=== PATIENT | male | born 1985 | race Caucasian/White ===

== ENCOUNTER 2018-11-18 12:17 | Emergency (ER) | payer OTHER ==
[~2018-11-18] VITALS: Wt 88.0 kg
[2018-11-18 12:22] VITALS: BP 114/78; PULSE 62; RESP 18
--- NOTE | 2018-11-18 12:27 | ERD ---
ER Documentation Chief Complaint Chief Complaint HERE FOR MEDICAL CLEARANCE FOR [facility] BOOKING. NO MEDICAL ISSUES. HPI Patient is here with [employer] to be cleared for booking. The patient was arrested last night and was in custodial. When he was getting discharged he mentioned to the nurse that he wants to hurt people. The [employer] are going to take him to [facility] facility and they want him here for okay to booking. Patient has no complaints at all ROS All systems reviewed and are negative except as per history of present illness. FmHx Family History: No coronary disease Physical Exam Vitals Vital Signs Date Temp Pulse Resp B/P (MAP) Pulse Ox O2 O2 Flow FiO2 Time Delivery Rate 11/18/18 98.0 62 18 114/78 97 12:22 (90) Physical Exam Const: No acute distress Head: Atraumatic Eyes: Normal Conjunctiva ENT: Normal External Ears, Nose and Mouth. Neck: Full range of motion. No meningismus. Resp: Clear to auscultation bilaterally Cardio: Regular rate and rhythm, no murmurs Abd: Soft, non tender, non distended. Normal bowel sounds Skin: No petechiae or rashes Back: No midline or flank tenderness Ext: No cyanosis, or edema Neur: Awake and alert Psych: Normal Mood and Affect Procedures/MDM Patient has been cleared for booking to be transferred to [facility] facility for homicidal thoughts Departure Diagnosis: Primary Impression: Homicidal ideation Additional Impression: Encounter for wellness examination Condition: Stable Patient Instructions: Psychosis MANUELA BERRY DO Nov 18, 2018 12:27
== END 2018-11-18 13:32 | disposition home or self-care (01) ==
LOC: E/R 12:17
DX: R45.850 Homicidal ideations (principal)
CPT/HCPCS: 99282

== ENCOUNTER 2018-11-18 13:57 | Emergency (ER) | payer OTHER ==
[~2018-11-18] VITALS: Wt 80.0 kg
--- NOTE | 2018-11-18 19:42 | ERD ---
ER Documentation Chief Complaint Chief Complaint headache and neck pain after trying to hand himself in assisted with shirt HPI This is a 32-year-old male that had been taken to [place] assisted. While he was there the patient stated he want to kill himself. He attempted to hang himself in assisted with a shirt however this was stopped by police as they noticed the patient wrapping the shirt around his neck. There is no coughing choking or gagging episode is again the attendant was stopped by police. The patient is expressing suicidal thoughts and has the ideation of wanting to hang himself. The patient contrary to the triage note is denying a headache or neck pain. He has had no fevers or shaking or chills. [employer] place the patient on a hold. ROS All systems reviewed and are negative except as per history of present illness. Allergies Allergies: Coded Allergies: No Known Allergy (Unverified , 11/18/18) PMhx/Soc Medical and Surgical Hx: pt denies Medical Hx, pt denies Surgical Hx Hx Alcohol Use: Yes (OCCATIONAL) Hx Substance Use: No Hx Tobacco Use: Yes (OCCATIONAL) Smoking Status: Light tobacco smoker Physical Exam Vitals Vital Signs Date Temp Pulse Resp B/P (MAP) Pulse Ox O2 O2 Flow FiO2 Time Delivery Rate 11/18/18 98.8 70 16 126/84 99 14:00 (98) Physical Exam Constitutional:Well-developed. Well-nourished. HEENT:Normocephalic. Atraumatic.Pupils were equal round reactive to light. Moist mucous membranes.No tonsillar exudates. Neck: No nuchal rigidity. No lymphadenopathy. No posterior cervical spine tenderness or step-offs. Respiratory: Not using accessory muscles of respiration.Lungs were clear to auscultation bilaterally. No rhonchi. No rales. No wheezing. Cardiovascular: Regular rate regular rhythm.No murmurs. No rubs were appreciated.S1, S2 normal. Distal pulses are palpable 2+ bilaterally. GI: Abdomen was soft. Nontender. Non Distended. No pulsatile abdominal masses or bruits. No rebound. No guarding. Bowel sounds were present and normal. Muscle skeletal: Full range of motion of both the upper and lower extremities bilaterally.Normal muscle tone.No assymetrical calf tenderness or swelling. Skin: No petechia, no purpura. No lesions on the palms or the soles of the feet. No maculopapular rash. NEURO: Patient was alert, awake, orientated x3.No facial droop. Gait observed and normal with no ataxia.Speech had regular rate and rhythm. No focal n eurological deficits. PSYCH: Patient has suicidal thoughts and ideations. Patient makes poor eye co ntact. Reluctant to answer most questions Result Diagram: 11/18/18 1426 11/18/18 1426 Results 24 hrs Laboratory Tests Test 11/18/18 14:26 11/18/18 16:55 White Blood Count 6.8 10^3/ul Red Blood Count 4.08 10^6/ul Hemoglobin 12.4 g/dl Hematocrit 37.4 % Mean Corpuscular Volume 91.7 fl Mean Corpuscular Hemoglobin 30.4 pg Mean Corpuscular Hemoglobin Concent 33.2 g/dl Red Cell Distribution Width 13.8 % Platelet Count 219 10^3/UL Mean Platelet Volume 10.4 fl Immature Granulocytes % 0.300 % Neutrophils % 54.7 % Lymphocytes % 28.4 % Monocytes % 14.1 % Eosinophils % 1.8 % Basophils % 0.7 % Nucleated Red Blood Cells % 0.0 /100WBC Immature Granulocytes # 0.020 10^3/ul Neutrophils # 3.7 10^3/ul Lymphocytes # 1.9 10^3/ul Monocytes # 1.0 10^3/ul Eosinophils # 0.1 10^3/ul Basophils # 0.1 10^3/ul Nucleated Red Blood Cells # 0.0 10^3/ul Prothrombin Time 14.6 Sec Prothrombin Time Ratio 1.1 INR International Normalized Ratio 1.13 Activated Partial Thromboplast Time 28.8 Sec Sodium Level 140 mmol/L Potassium Level 3.9 mmol/L Chloride Level 107 mmol/L Carbon Dioxide Level 26 mmol/L Anion Gap 7 Blood Urea Nitrogen 22 mg/dl Creatinine 1.14 mg/dl Est Glomerular Filtrat Rate mL/min > 60 mL/min Glucose Level 97 mg/dl Calcium Level 10.0 mg/dl Total Bilirubin 0.9 mg/dl Direct Bilirubin 0.00 mg/dl Indirect Bilirubin 0.9 mg/dl Aspartate Amino Transf (AST/SGOT) 77 IU/L Alanine Aminotransferase (ALT/SGPT) 97 IU/L Alkaline Phosphatase 92 IU/L Total Protein 8.8 g/dl Albumin 4.6 g/dl Globulin 4.20 g/dl Albumin/Globulin Ratio 1.09 Salicylates Level < 1.0 mg/dl Acetaminophen Level < 10.0 ug/ml Ethyl Alcohol Level < 10.0 mg/dl Urine Color YELLOW Urine Clarity CLEAR Urine pH 6.0 Urine Specific [place] 1.026 Urine Ketones NEGATIVE mg/dL Urine Nitrite NEGATIVE mg/dL Urine Bilirubin NEGATIVE mg/dL Urine Urobilinogen NEGATIVE mg/dL Urine Leukocyte Esterase NEGATIVE [place]/ul Urine Hemoglobin NEGATIVE mg/dL Urine Glucose NEGATIVE mg/dL Urine Total Protein NEGATIVE mg/dl Urine Opiates Screen Negative Urine Barbiturates Negative Urine Amphetamines Screen POSITIVE Urine Benzodiazepines Screen Negative Urine Cocaine Screen Negative Urine Cannabinoids Positive Procedures/MDM The patient presented to the emergency department with an active suicidal ideati on. My differential diagnosis included but was not limited to major depressive disorder, normal despondency, bipolar disorder, schizophrenia, anxiety disorder, borderline personality disorder, antisocial personality disorder, organic mental disorder, bereavement or alcohol or drug abuse. Ancillary lab work was obtained including blood alcohol level, drug screen and serum toxicology panel. The patient was provided a safe environment while in the emergency department with appropriate supervision. The patient is currently waiting for PET team to come and evaluate the patient as the patient has been placed on a 5150 by [employer] and will be watched in the emergency department with suicide precautions until placement. Patient no severe electrolyte abnormalities. Departure Diagnosis: Primary Impression: Suicide threat or attempt Condition: Serious CORTEZ VOGT MD Nov 18, 2018 19:42
--- NOTE | 2018-11-20 03:09 | EN ---
Date/Time of Note Date/Time of Note DATE: 11/20/18 TIME: 03:09 ER Progress Note Psychiatric Observation Note: Indication: Psychosis Duration: Greater than 22 hours Family history: As documented in original HPI The patient was observed with serial exams over the above timeframe. The patient continued to be well-appearing, and observation continued without complication. All other needs have been met during emergency department stay. Routine psychiatric medications ordered: Still pending psychiatric evaluation Hold status: Patient is still pending telemetry medicine psychiatry evaluation. He continued to be disorganized and agitated Placement status: Pending evaluation LEANNE GARNETT Nov 20, 2018 03:09
--- NOTE | 2018-11-20 07:01 | PSY ---
Date/Time of Note Date/Time of Note DATE: 11/20/18 TIME: 06:59 Psychiatric Subjective Eval Consent Pt consented to telemedicine: Yes Subjective Evaluation Patient location: emergency Chief Complaint: headache and neck pain after trying to hand himself in half-way with shirt Medical history Problems Medical Problems: (1) Encounter for wellness examination Status: Acute (2) Homicidal ideation Status: Acute (3) Suicide threat or attempt Status: Acute Allergies: Coded Allergies: No Known Allergy (Unverified , 11/18/18) Psychiatric Objective Eval Mental Status Examination: Laboratory Results Laboratory Tests Test 11/18/18 14:26 11/18/18 16:55 White Blood Count 6.8 10^3/ul Red Blood Count 4.08 10^6/ul Hemoglobin 12.4 g/dl Hematocrit 37.4 % Mean Corpuscular Volume 91.7 fl Mean Corpuscular Hemoglobin 30.4 pg Mean Corpuscular Hemoglobin Concent 33.2 g/dl Red Cell Distribution Width 13.8 % Platelet Count 219 10^3/UL Mean Platelet Volume 10.4 fl Immature Granulocytes % 0.300 % Neutrophils % 54.7 % Lymphocytes % 28.4 % Monocytes % 14.1 % Eosinophils % 1.8 % Basophils % 0.7 % Nucleated Red Blood Cells % 0.0 /100WBC Immature Granulocytes # 0.020 10^3/ul Neutrophils # 3.7 10^3/ul Lymphocytes # 1.9 10^3/ul Monocytes # 1.0 10^3/ul Eosinophils # 0.1 10^3/ul Basophils # 0.1 10^3/ul Nucleated Red Blood Cells # 0.0 10^3/ul Prothrombin Time 14.6 Sec Prothrombin Time Ratio 1.1 INR International Normalized Ratio 1.13 Activated Partial Thromboplast Time 28.8 Sec Sodium Level 140 mmol/L Potassium Level 3.9 mmol/L Chloride Level 107 mmol/L Carbon Dioxide Level 26 mmol/L Anion Gap 7 Blood Urea Nitrogen 22 mg/dl Creatinine 1.14 mg/dl Est Glomerular Filtrat Rate mL/min > 60 mL/min Glucose Level 97 mg/dl Calcium Level 10.0 mg/dl Total Bilirubin 0.9 mg/dl Direct Bilirubin 0.00 mg/dl Indirect Bilirubin 0.9 mg/dl Aspartate Amino Transf (AST/SGOT) 77 IU/L Alanine Aminotransferase (ALT/SGPT) 97 IU/L Alkaline Phosphatase 92 IU/L Total Protein 8.8 g/dl Albumin 4.6 g/dl Globulin 4.20 g/dl Albumin/Globulin Ratio 1.09 Salicylates Level < 1.0 mg/dl Acetaminophen Level < 10.0 ug/ml Ethyl Alcohol Level < 10.0 mg/dl Urine Color YELLOW Urine Clarity CLEAR Urine pH 6.0 Urine Specific [place] 1.026 Urine Ketones NEGATIVE mg/dL Urine Nitrite NEGATIVE mg/dL Urine Bilirubin NEGATIVE mg/dL Urine Urobilinogen NEGATIVE mg/dL Urine Leukocyte Esterase NEGATIVE [place]/ul Urine Hemoglobin NEGATIVE mg/dL Urine Glucose NEGATIVE mg/dL Urine Total Protein NEGATIVE mg/dl Urine Opiates Screen Negative Urine Barbiturates Negative Urine Amphetamines Screen POSITIVE Urine Benzodiazepines Screen Negative Urine Cocaine Screen Negative Urine Cannabinoids Positive Assessment and Plan Recommendation/Plan Discharge Disposition: Psychiatric inpatient Legal Status: Place involuntary hold Assessment Additional comments: IDENTIFYING INFORMATION: 32 year old Male patient who is currently located at the hospital and for whom psychiatric consultation was requested. SOURCES OF INFORMATION: The patient who appears to be somewhat reliable and the medical records; the nursing staff. CHIEF COMPLAINT: "homicidal, then suicide attempt". HISTORY OF PRESENT ILLNESS: The patient was interviewed via telemedicine in the presence of and under the supervision of nursing staff of the hospital. The consent to conducting this interview via telemedicine was obtained by the nursing staff at the hospital. The patient reports having AH, HI, and he tried to choke himself with a towel 2 days ago, feels anxiety, reports that he wanted to defend himself against anyone who was after him, especially gangs who are after him. He reports that he was arrested because he was walking with a knife going to his uncle's house. The patient denies using alcohol heavily or regularly. The patient reports using MJ and meth occasionally. Last use was few days ago. The patient denies using any other substances. In terms of past psychiatric history, the patient reports having a history of past psychiatric hospitalizations. The patient reports having a history of no past suicide attempts. PAST MEDICAL HISTORY: asthma, acute pancreatitis, gastroparesis, carpal tunnel. HOME MEDICATIONS: omeprazole, naproxen, albuterol prn. ALLERGIES TO MEDICATIONS: NKDA. LABORATORY TESTS: CBC with H/H 12.4/37.4, CMP with BUN 22, AST 77, ALT 97, UDS + meth, MJ, alcohol level -. SOCIAL HISTORY: homeless, , has 2 kids, no access to firearms. REVIEW OF SYSTEMS: Constitutional (e.g., fever, weight loss): negative; Eyes, Ears, Nose, Mouth, Throat: negative; Cardiovascular: negative; Respiratory: negative; Gastrointestinal: negative; Genitourinary: negative; Musculoskeletal: negative; Integumentary (skin and/or breast): negative; Neurological: negative; Psychiatric: as per HPI; Endocrine: negative; Hematologic/Lymphatic: negative; Allergic/Immunologic: negative. MENTAL STATUS EXAMINATION: General Appearance and Behavior: Calm, cooperative with the interview, pleasant with the current interviewer, makes fair eye contact, fairly groomed, no abnormal movements noted, Speech: Regular rate, regular rhythm, normal latency, normal volume, somewhat decreased amount, Flow of thought: sequential, logical, goal-directed, Content of thought: + auditory hallucinations, no visual hallucinations, + delusions, positive for suicidal ideation; + homicidal ideation, Mood: "depressed", Affect: dysthymic, dysphoric, not reactive, Attention: normal based on the interview, Insight: fair, Judgment: poor, Memory: normal based on the interview, Sensorium: alert and oriented to person, place and date. ASSESSMENT: The patient's presentation and history are consistent with the diagnosis of unspecified psychotic disorder, stimulant use disorder, cannabis use disorder. The patient presents with an exacerbation of psychosis in the context of medication noncompliance, psychosocial stressors and substance use. PLAN: - Medication management: Would start risperidone 1 mg po qhs. Would start haloperidol 5 mg IM PRN severe agitation q4 hours. Would start diphenhydramine 50 mg IM PRN severe agitation q4 hours. Would start lorazepam 2 mg IM PRN severe agitation q4 hours Will defer to the inpatient psychiatry team for other medication changes. - Labs: No other laboratory tests are needed at this time. - Psychotherapy: Provided supportive psychotherapy and psychoeducation. - Disposition: Would recommend involuntary admission to the inpatient psychiatric unit given the severity of the patient's psychiatric condition and the fact that the patient is an imminent danger to self and/or others so long as the patient has been cleared medically for admission to psychiatry. Inpatient psychiatric admission is at this time the least restrictive environment where the patient can receive the psychiatric care that is needed. Would place on suicide precautions. The patient fulfills criteria for being placed on an involuntary hold for being a danger to self and others due to a psychiatric disorder. Discussed about the above plan with Dr. Royal. BENITA HUI MD Nov 20, 2018 07:01
[2018-11-20] MEDS ORDERED: LORAZEPAM 1 MG TAB PO ONE (09:00)
[2018-11-20] MEDS ORDERED: SILVER SULFADIAZINE 1% 25 GM CR TOP ONE (19:30)
[2018-11-20] MEDS ORDERED: LORAZEPAM 2 MG INJ IV ONE (21:00)
[2018-11-20] MEDS ORDERED: OMEP40CA6 PO (21:46)
[2018-11-20] MEDS ORDERED: MULTI PO (21:46)
[2018-11-20] MEDS ORDERED: FLUT100D INHALATION (21:46)
[2018-11-20] MEDS ORDERED: ALBU18HF INHALATION (21:46)
[2018-11-21] MEDS ORDERED: LORAZEPAM 2 MG INJ IM ONE (09:00)
[2018-11-21 11:09] VITALS: BP 109/53; PULSE 78; RESP 19
== END 2018-11-21 11:15 | disposition home or self-care (01) ==
LOC: E/R 13:57
DX: R45.851 Suicidal ideations (principal); F17.210 Nicotine dependence, cigarettes, uncomplicated
CPT/HCPCS: 80053; 80307; 81003; 85025; 85610; 85730; 96374; J2060; Z7502